=== PATIENT | male | born 1955 | race Two or more races ===

== ENCOUNTER 2021-08-10 20:25 | Emergency (ER) | payer MEDICARE, OTHER ==
[~2021-08-10] VITALS: Ht 175.3 cm; Wt 90.7 kg
[2021-08-10 21:18] VITALS: BP 141/76
--- NOTE | 2021-08-10 21:32 | NUR ---
PATIENT REFUSED TO SEE A DOCTOR AND DENIED ANY PAIN OR DISCOMFORT.
--- NOTE | 2021-08-10 21:50 | NUR ---
PT WAS PICKED UP BY A STAFF FROM THE FACILITY
== END 2021-08-10 21:45 | disposition home or self-care (01) ==
LOC: ER 20:28
DX: Z53.21 Procedure and treatment not carried out due to patient leaving prior to being seen by health care provider (principal)